=== PATIENT | male | born 1995 | race Caucasian/White ===

== ENCOUNTER 2017-07-16 13:18 | Emergency (ER) | payer OTHER ==
[2017-07-16 13:33] VITALS: TEMP 98.2
[2017-07-16] MEDS ORDERED: ONDANSETRON 4 MG/2 ML VIAL IVP ONE (13:58)
[2017-07-16] MEDS ORDERED: NS 1,000 ML IV ONE (13:58)
--- NOTE | 2017-07-16 14:01 | EDPHY ---
H & P Time Seen by Provider: 07/16/17 13:37 HPI/ROS: CHIEF COMPLAINT: Vomiting, drowsy HISTORY OF PRESENT ILLNESS: 22-year-old male presents with vomiting and drowsiness. He was diagnosed with mononucleosis 1 month ago. Initially he was doing fine and minimal symptoms related to the mono. 2 weeks later, he saw his telecom coordinator and started taking Valtrex. Since being on Valtrex, he has not felt well. Just prior to arrival, he started vomiting, after which he felt very dizzy , like he might faint. Now he feels very drowsy and feels that he cannot keep his eyes open. He was having trouble walking at home. No fever or chills. No alcohol drug use. REVIEW OF SYSTEMS: Constitutional: No fever, no chills Eyes: No visual changes ENT: No sore throat Respiratory: No cough, no shortness of breath Cardiac: No chest pain Gastrointestinal: no abdominal pain Genitourinary: no dysuria Musculoskeletal: No leg pain or swelling Skin: No rash Neurological: Mild right-sided headache Psychiatric: No depression or anxiety Past Medical/Surgical History: Mononucleosis Social History: Student at [employer] ([place], [place]) Smoking Status: Current some day smoker Physical Exam: General Appearance: Alert, pleasant, eyes closed Eyes: Pupils equal and round, no conjunctival pallor or injection ENT, Mouth: Mucous membranes moist Neck: Normal inspection Respiratory: Occasional wheezing on right Cardiovascular: Regular rate and rhythm, no murmur Gastrointestinal: Abdomen is soft and nontender Neurological: Alert, oriented x3, normal speech and normal thought process, motor and sensory intact Skin: Warm and dry Extremities: Nontender, no pedal edema Psychiatric: Flat affect Constitutional: Initial Vital Signs Temperature (C) 36.8 C 07/16/17 13:30 Heart Rate 103 H 07/16/17 13:30 Respiratory Rate 16 07/16/17 13:30 Blood Pressure 142/85 H 07/16/17 13:30 O2 Sat (%) 98 07/16/17 13:30 O2 Delivery Mode Room Air Allergies/Adverse Reactions: egg Allergy (Verified 02/12/16 01:22) Fish Containing Products [fish] Allergy (Verified 02/12/16 01:22) Home Medications: Medication Instructions Recorded Miscellaneous Medical Supply [NO 03/04/13 HOME MEDS] Meclizine HCl [Meclizine HCl 25 mg 25 mg PO TID PRN #15 tab 07/16/17 (RX,OTC)] Ondansetron Odt [Zofran Odt 4 mg 4 mg PO Q4 PRN #6 tab 07/16/17 (*)] Medical Decision Making - Diagnostics Imaging Results: Chest X-Ray 07/16/17 13:57 Impression: Peribronchial thickening consistent with bronchitis or viral interstitial pneumonitis. ED Course/Re-evaluation: IV normal saline 1 L and Zofran 4 mg IV given. 2:45 p.m.-feels much better, dizziness has resolved. He is much more communicative now and tells me more HPI. He ambulated in the emergency department and felt somewhat dizzy. I examined him and he has horizontal nystagmus. The remainder of the neurologic exam is normal. After further questioning, it sounds like he had an episode of vertigo that has now almost completely resolved. Antivert 25 mg orally given. Warning signs given. Differential Diagnosis: Differential diagnosis includes TIA, stroke, intracranial hemorrhage, tumor, electrolyte abnormality and acute labyrinthitis. - Data Points Laboratory Results: Laboratory Results 07/16/17 13:30 07/16/17 13:30 Medications Given: Discontinued Medications Sodium Chloride (Ns) 1,000 mls @ 0 mls/hr IV EDNOW ONE; Wide Open PRN Reason: Protocol Stop: 07/16/17 13:59 Last Admin: 07/16/17 14:20 Dose: 1,000 mls Meclizine HCl (Meclizine Hcl) 25 mg PO EDNOW ONE Stop: 07/16/17 15:01 Last Admin: 07/16/17 15:05 Dose: 25 mg Ondansetron HCl (Zofran) 4 mg IVP EDNOW ONE Stop: 07/16/17 13:59 Last Admin: 07/16/17 14:20 Dose: 4 mg Departure - Departure Disposition: Home, Routine, Self-Care Clinical Impression: Vertigo Condition: Good Instructions: Vertigo (ED) Referrals: [facility] [Outside] - 1 day, if not improved Stand Alone Forms: School Excuse Prescriptions: Meclizine HCl [Meclizine HCl 25 mg (RX,OTC)] 25 mg PO TID PRN #15 tab PRN Reason: Dizziness Ondansetron Odt [Zofran Odt 4 mg (*)] 4 mg PO Q4 PRN #6 tab PRN Reason: Nausea
[2017-07-16 14:04] LABS: PLATELET COUNT 239 10^3/uL (150-400)
[2017-07-16] MEDS ORDERED: MECLIZINE HCL 25 MG TAB PO ONE (15:00)
[2017-07-16 15:10] VITALS: BP 126/83; PULSE 79; RESP 18; O2SAT 14
== END 2017-07-16 15:15 | disposition home or self-care (01) ==
LOC: EDUNIT#
DX: R42 Dizziness and giddiness (principal); F17.200 Nicotine dependence, unspecified, uncomplicated; E86.9 Volume depletion, unspecified
CPT/HCPCS: 80305; 96374; G0480; J2405